=== PATIENT | male | born 1975 | race Hispanic/Latino ===

== ENCOUNTER 2017-09-17 12:34 | Emergency (ER) | payer SELFPAY ==
[2017-09-17 13:34] VITALS: BP 100/63
== END 2017-09-17 13:28 | disposition other institution (70) ==
LOC: ED 12:34
DX: R07.89 Other chest pain (principal); Z53.21 Procedure and treatment not carried out due to patient leaving prior to being seen by health care provider
CPT/HCPCS: 36415; 93005; 93010